=== PATIENT | male | born 1955 | race Caucasian/White ===

== ENCOUNTER → 2022-02-27 | Outpatient (CLI) | payer OTHER, SELFPAY ==
--- NOTE | 2022-02-27 08:54 | CDU_ITS ---
Reason For Study: amaurosis Rt. Velocities/BP Lt. Velocities/BP Prox CCA 79.3/17.9 cm/sec. Prox CCA 99.2/25.6 cm/sec. Mid CCA 94.1/24.1 cm/sec. Mid CCA 65.8/18.5 cm/sec. Dist CCA 68.3/20.4 cm/sec. Dist CCA 71.4/20.4 cm/sec. Prox ICA 72.4/28.5 cm/sec. Prox ICA 40.5/14.1 cm/sec. Mid ICA 86.3/34.7 cm/sec. Mid ICA 72.4/29.9 cm/sec. Dist ICA 61.0/23.2 cm/sec. Dist ICA 72.4/27.0 cm/sec. Rt. ICA/CCA = 86.3/94.1=0.9. Lt. ICA/CCA = 72.4/65.8=1.1. Prox ECA 116.2/18.1 cm/sec. Prox ECA 130.8/23.0 cm/sec. Rt. Vert. 53.5/16.6 cm/sec. Lt. Vert. 46.9/16.6 cm/sec. Right Extracranial There is intimal thickening but no significant atherosclerotic plaque noted in the right common carotid artery. There is intimal thickening but no significant atherosclerotic plaque noted in the right internal carotid artery. There is intimal thickening but no significant atherosclerotic plaque noted in the right external carotid artery. Antegrade flow is noted in the right vertebral artery. There is no significant atherosclerotic plaque noted in the right bulb. Left Extracranial There is homogeneous, smooth atherosclerotic plaque noted in the left common carotid artery. There is heterogeneous, irregular atherosclerotic plaque noted in the left internal carotid artery. There is intimal thickening but no significant atherosclerotic plaque noted in the left external carotid artery. Antegrade flow is noted in the left vertebral artery. There is heterogeneous, irregular atherosclerotic plaque noted in the left bulb. Procedure Carotid Duplex [id number]. Exam performed in department. VL/Carotid Duplex Ultrasound Interpretation Summary Normal right extracranial internal carotid. Mild (<50%) stenosis left extracranial internal carotid. The Right vertebral is patent and antegrade. The Left vertebral is patent and antegrade Ordering Physician: Edson Patel Referring Physician: Roe Kaur Performed By: Elizabet Luna, [place], RVT
--- NOTE | 2022-02-27 08:55 | ECHOD_ITS ---
Reason For Study: amaurosis Procedure This was a 2D Doppler, Color Flow transthoracic echocardiogram. Exam performed in department. Left Ventricle Normal LV size. Left ventricular systolic function is normal. The estimated ejection fraction is 55 %. Stage 1 diastolic dysfunction. No regional wall motion abnormalities noted. Right Ventricle Normal RV size. Normal systolic function. Atria Normal left atrium. Normal right atrium. Mitral Valve Normal mitral valve. Tricuspid Valve Normal tricuspid valve. Aortic Valve Trisinus/trileaflet aortic valve. Mild focal aortic valve calcification. Pulmonic Valve The pulmonic valve is not well visualized. Great Vessels Normal aortic root. The pulmonary is not well visualized. Normal inferior vena cava. Pericardium/Pleural No pericardial effusion. MMode/2D Measurements & Calculations LVIDd: 4.0 cm IVSd: 0.89 cm Ao root diam: 3.2 cm LVIDs: 2.6 cm LVPWd: 1.5 cm RVDd: 4.0 cm FS: 34.0 % LAV(MOD-bp): 60.5 ml LVAd ap4: 25.2 cm2 SV(MOD-sp4): 37.9 ml LAV(MOD-bp) Indexed: 28.1 ml/m2 LVLd ap4: 8.5 cm LAV(MOD-sp2): 64.5 ml EDV(MOD-sp4): 62.1 ml LAV(MOD-sp4): 54.5 ml EDV(sp4-el): 63.7 ml LVAs ap4: 13.5 cm2 LVLs ap4: 7.1 cm ESV(MOD-sp4): 24.2 ml ESV(sp4-el): 21.9 ml EF(MOD-sp4): 61.1 % EF(sp4-el): 65.6 % SV(sp4-el): 41.8 ml LA A4 area: 20.1 cm2 LA dimension(2D): 4.1 cm RA A4 area: 20.4 cm2 Time Measurements MV dec time: 0.37 sec Doppler Measurements & Calculations MV E max braydon: 67.0 cm/sec Lat Peak E' Braydon: 9.4 cm/sec Med Peak E' Braydon: 8.9 cm/sec MV A max braydon: 70.4 cm/sec E/E' lat: 7.1 E/E' med: 7.5 MV E/A: 0.95 MV V2 max: 88.6 cm/sec Ao V2 max: 150.7 cm/sec MV max P.1 mmHg MV dec slope: 186.6 cm/sec2 Ao max P.1 mmHg MV V2 mean: 56.4 cm/sec Ao V2 mean: 102.9 cm/sec MV mean P.4 mmHg Ao mean P.9 mmHg MV V2 VTI: 34.7 cm Ao V2 VTI: 33.5 cm LV V1 max: 120.6 cm/sec PA V2 max: 110.2 cm/sec LV V1 max P.8 mmHg LV V1 mean P.0 mmHg LV V1 mean: 80.3 cm/sec LV V1 VTI: 24.7 cm ECHO/Echo Complete Interpretation Summary Normal LV size. Left ventricular systolic function is normal. The estimated ejection fraction is 55 %. Mild focal aortic valve calcification. Stage 1 diastolic dysfunction. Ordering Physician: Edson Patel Referring Physician: Edson Patel Performed By: Deidra Reese RCS
== END | disposition home or self-care (01) ==
PROVIDERS: PCP Family Medicine; Referring Provider Ophthalmology; Visit Provider Ophthalmology
DX: I65.22 Occlusion and stenosis of left carotid artery (principal); G45.3 Amaurosis fugax
CPT/HCPCS: 93306; 93880

== ENCOUNTER → 2024-03-01 | Outpatient (CLI) | payer OTHER, SELFPAY | END | disposition home or self-care (01) | LOC: LABSPEC 16:42 | PROVIDERS: PCP Family Medicine; Referring Provider Otolaryngology Otolaryngology/Facial Plastic Surgery; Visit Provider Otolaryngology Otolaryngology/Facial Plastic Surgery | DX: J32.9 Chronic sinusitis, unspecified (principal) | CPT/HCPCS: 87070; 87205 ==

== ENCOUNTER → 2025-05-03 | Outpatient (CLI) | payer OTHER, SELFPAY | END | disposition home or self-care (01) | LOC: LABSPEC 15:55 | PROVIDERS: PCP Family Medicine; Referring Provider Otolaryngology Otolaryngology/Facial Plastic Surgery; Visit Provider Otolaryngology Otolaryngology/Facial Plastic Surgery | DX: J32.9 Chronic sinusitis, unspecified (principal) | CPT/HCPCS: 87070; 87077; 87205 ==

== ENCOUNTER → 2025-06-15 | Outpatient (CLI) | payer OTHER, SELFPAY | END | disposition home or self-care (01) | LOC: LABSPEC 15:27 | PROVIDERS: PCP Family Medicine; Referring Provider Otolaryngology Otolaryngology/Facial Plastic Surgery; Visit Provider Otolaryngology Otolaryngology/Facial Plastic Surgery | DX: J02.9 Acute pharyngitis, unspecified (principal) | CPT/HCPCS: 87070 ==